=== PATIENT | male | born 1940 | race Caucasian/White ===

== ENCOUNTER 2019-11-03 12:15 | Emergency (ER) | payer OTHER, SELFPAY ==
[2019-11-03 12:16] VITALS: BMI 25.9
--- NOTE | 2019-11-03 12:20 | ED_ITS ---
Entered by Sonya Thorpe, acting as scribe for HPI - Fall General: Chief Complaint: Fall Stated Complaint: FALL Time Seen by Provider: 11/03/19 12:20 Source: patient and family Mode of arrival: EMS Limitations: altered mental status (chronic dementia) History of Present Illness: HPI Narrative: 79 yo male presents to ED following a fall this morning. The patient has chronic dementia so the history has been given by his spouse. The spouse stated the patient went outside sometime this morning and was outside for about 5 minutes when he fell. The patient complaints of knee, chest and back pain. He said he has centralized chest pain with palpable L sided chest pain. The spouse states the patient told her that he landed on his hip first when he fell (didn't specify which one). He told his spouse he was numb when he came in. The patient's PCP is [facility] MD complaint: fall Onset (ago): hour(s) (1) Fall from: standing (walking) Fall witnessed: no Place fall occurred: home Loss of consciousness: Unsure Prolonged down time: no Symptoms prior to fall: other (unknown) Context: other (unknown) Location of injury: back, pelvis (hip) and other (knee) Location of injury - extremities: Right: knee Severity: moderate Quality: throbbing Associated symptoms-after fall: Reports chest pain Review of Systems Card: Reports: chest pain PFSH ED PFSH: Statuses (acute, chronic, etc) shown below reflect problem list status as previously entered and may not be historically accurate Social History Smoking and tobacco status: current every day smoker Course Vital Signs: Vital signs: Vital Signs Temperature 97.8 F 11/03/19 12:27 Pulse Rate 56 L 11/03/19 12:27 Respiratory Rate 17 11/03/19 12:57 Blood Pressure 133/77 11/03/19 12:27 Pulse Oximetry 98 11/03/19 12:57 MDM - Fall MDM Narrative: Medical decision making narrative: Patient presents here with knee along with chest pain from a fall. Patient likely has contusions and x- rays here are normal. He had no neck pain at all. CT scan is normal. Patient did have possible thoracic fracture but is likely old. Patient is stable for discharge. He is to follow-up with primary care doctor in 3 to 5 days and return if worsening. Lab Data: Labs: Lab Results 11/03/19 11/03/19 11/03/19 Range/Units 12:46 12:46 12:46 WBC 12.8 H (4.0-10.0) 10^3/ uL RBC 4.35 (4.1-5.3) 10^6/u L Hgb 14.1 (11.7-16.6) g/dL Hct 43.6 (42.0-52.0) % MCV 100.2 H (80-94) fL MCH 32.4 (28.0-34.0) pg MCHC 32.3 (30.0-36.0) g/dL RDW 14.2 (12.1-15.1) % Plt Count 157 (130-400) 10^3/c mm MPV 12.2 H (7.4-10.4) fL Neut % (Auto) 81.1 % Lymph % (Auto) 9.8 % Stephen[place] % (Auto) 5.5 % Eos % (Auto) 2.3 % Baso % (Auto) 0.5 % Neut # (Auto) 10.4 H (1.8-7.7) 10^3/u L Lymph # (Auto) 1.3 (0.8-4.8) 10^3/u L Stephenson # (Auto) 0.7 (0.2-0.9) 10^3/u L Eos # (Auto) 0.3 (0.0-0.8) 10^3/u L Baso # (Auto) 0.1 (0.0-0.1) 10^3/u L Nucleated RBC % (a uto) 0 % Nucleated RBCs # 0.0 /100WBC Sodium 136 (136-145) mmol/L Potassium 4.3 (3.5-5.1) mmol/L Chloride 100 (98-107) mmol/L Carbon Dioxide 24 (22-29) mmol/L Anion Gap 16.3 (5-19) BUN 14 (8-23) mg/dL Creatinine 1.3 H (0.7-1.2) mg/dL Glucose 126 H (74-106) mg/dL Calcium 9.8 (8.5-10.5) mg/dL Total Bilirubin 0.5 (0.15-1.2) mg/dL AST 18 (0-40) U/L ALT 15 (0-41) U/L Alkaline Phosphata se 80 (40-130) IU/L Troponin T Baselin e 10 (0-15) ng/mL Total Protein 6.6 (6.6-8.7) g/dL Albumin 4.4 (3.5-5.2) g/dL Globulin 2.2 (1.3-4.6) g/dL Imaging Data^: CXR: Radiologist's impression: [place] [id number] XRay Report Signed Patient: Gene Vargas Unit #: [id number] : 1940 Age/Sex: 79 / M ADM Date: 11/03/19 Loc: ER Room/Bed: Attending Dr: Ordering Provider/Ordering MD: Ric Helton MD Date of Service: 11/03/19 Procedure(s): XR chest 1V portable [id number] Accession Number(s): [id number] Report Number: [id number] PROCEDURE INFORMATION: Exam: XR Chest, 1 View Exam date and time: 11/03/2019 1:39 PM Age: 79 years old Clinical indication: Injury or trauma; Fall; Initial encounter; Blunt trauma (contusions or hematomas); Additional info: Fall, patient confused TECHNIQUE: Imaging protocol: XR of the chest Views: 1 view. COMPARISON: CR Chest 1 [place] [id number] 05/18/2018 1:28 AM FINDINGS: Lungs: Unremarkable. No consolidation. Pleural space: Unremarkable. No pleural effusion. No pneumothorax. Heart/Mediastinum: Unremarkable. No cardiomegaly. Bones/joints: Unremarkable. XR/XR chest 1V portable [id number] IMPRESSION: No acute findings. Dictated By: Neto Smith Signed By: Neto Smith Signed Date/Time: 11/03/19 1403 DD/ Other Xray: Radiologist's impression: [address] [address] XRay Report Signed Patient: Gene Vargas Unit #: [id number] : 1940 Age/Sex: 79 / M ADM Date: 11/03/19 Loc: ER Room/Bed: Attending Dr: Ordering Provider/Ordering MD: Ric Helton MD Date of Service: 11/03/19 Procedure(s): XR lumbar spine 2-3V* 54869 Accession Number(s): [id number] Report Number: [id number] PROCEDURE INFORMATION: Exam: XR Lumbosacral Spine, 2 or 3 Views Exam date and time: 11/03/2019 1:37 PM Age: 79 years old Clinical indication: Injury or trauma; Fall; Initial encounter; Blunt trauma (contusions or hematomas); Additional info: Fall, patient confused TECHNIQUE: Imaging protocol: XR of the lumbosacral spine, 2 or 3 views. COMPARISON: No relevant prior studies available. FINDINGS: Vertebrae: Normal. No acute fracture. Normal alignment. Soft tissues: Normal. XR/XR lumbar spine 2-3V* [id number] IMPRESSION: Unremarkable radiograph. Dictated By: Neto Smith Signed By: Neto Smith Signed Date/Time: 11/03/19 1357 DD/ [address] [address] XRay Report Signed Patient: Gene Vargas Unit #: [id number] : 1940 Age/Sex: 79 / M ADM Date: 11/03/19 Loc: ER Room/Bed: Attending Dr: Ordering Provider/Ordering MD: Ric Helton MD Date of Service: 11/03/19 Procedure(s): XR pelvis 1-2V* 78555 Accession Number(s): [id number] Report Number: [id number] PROCEDURE INFORMATION: Exam: XR Pelvis Exam date and time: 11/03/2019 1:39 PM Age: 79 years old Clinical indication: Injury or trauma; Fall; Initial encounter; Blunt trauma (contusions or hematomas); Bilateral; Pelvic region; Additional info: Fall, patient confused TECHNIQUE: Imaging protocol: XR pelvis. Views: 1 or 2 view. COMPARISON: No relevant prior studies available. FINDINGS: Bones/joints: Unremarkable. No acute fracture. Soft tissues: Unremarkable. XR/XR pelvis 1-2V* [id number] IMPRESSION: No acute findings. Dictated By: Neto Smith Signed By: Nteo Smith Signed Date/Time: 11/03/19 1402 DD/ [place] [id number] XRay Report Signed Patient: Gene Vargas Unit #: [id number] : 1940 Age/Sex: 79 / M ADM Date: 11/03/19 Loc: ER Room/Bed: Attending Dr: Ordering Provider/Ordering MD: Ric Helton MD Date of Service: 11/03/19 Procedure(s): XR thoracic spine 3V* 57984 Accession Number(s): [id number] Report Number: [id number] PROCEDURE INFORMATION: Exam: XR Thoracic Spine, 3 Views Exam date and time: 11/03/2019 1:37 PM Age: 79 years old Clinical indication: Injury or trauma; Fall; Initial encounter; Blunt trauma (contusions or hematomas); Additional info: Fall, patient confused TECHNIQUE: Imaging protocol: XR of the thoracic spine, 3 views. COMPARISON: No relevant prior studies available. FINDINGS: Vertebrae: A T5 compression fracture is seen of indeterminate age. Generalized osteopenia is seen. Otherwise No acute fracture. Normal alignment. Soft tissues: Normal. XR/XR thoracic spine 3V* 71587 IMPRESSION: Generalized osteopenia. Compression fracture T5 vertebral body. Otherwise negative examination Dictated By: Neto Smith Signed By: Neto Smith Signed Date/Time: 11/03/19 1356 DD/ [address] [address] XRay Report Signed Patient: Gene Vargas Unit #: [id number] : 1940 Age/Sex: 79 / M ADM Date: 11/03/19 Loc: ER Room/Bed: Attending Dr: Ordering Provider/Ordering MD: Ric Helton MD Date of Service: 11/03/19 Procedure(s): XR knee LT 3V* 86369 Accession Number(s): [id number] Report Number: [id number] PROCEDURE INFORMATION: Exam: XR Left Knee Exam date and time: 11/03/2019 1:39 PM Age: 79 years old Clinical indication: Injury or trauma; Fall; Initial encounter; Blunt trauma; Knee; Left; Additional info: Fall, patient confused TECHNIQUE: Imaging protocol: XR Left knee. Views: 3 views. COMPARISON: No relevant prior studies available. FINDINGS: Bones/joints: Negative for acute bony abnormality. Soft tissues: Normal. XR/XR knee LT 3V* [id number] IMPRESSION: No acute findings. Dictated By: Neto Smith Signed By: Neto Smith Signed Date/Time: 11/03/19 1357 DD/ [place] [address] XRay Report Signed Patient: Gene Vargas Diya Unit #: [id number] : 1940 Age/Sex: 79 / M ADM Date: 11/03/19 Loc: ER Room/Bed: Attending Dr: Ordering Provider/Ordering MD: Ric Helton MD Date of Service: 11/03/19 Procedure(s): XR knee RT 3V* 12888 Accession Number(s): [id number] Report Number: [id number] PROCEDURE INFORMATION: Exam: XR Right Knee Exam date and time: 11/03/2019 1:39 PM Age: 79 years old Clinical indication: Injury or trauma; Fall; Initial encounter; Blunt trauma; Knee; Right; Additional info: Fall, patient confused TECHNIQUE: Imaging protocol: XR Right knee. Views: 3 views. COMPARISON: No relevant prior studies available. FINDINGS: Bones/joints: Negative for acute bony abnormality Soft tissues: Normal. XR/XR knee RT 3V* 69080 IMPRESSION: No acute findings. Dictated By: Neto Smith Signed By: Neto Smith Signed Date/Time: 11/03/19 135 DD/ CT Head: Radiologist's impression: [place] [address] CT Scan Report Signed Patient: Gene Vargas Diya Unit #: [id number] : 1940 Age/Sex: 79 / M ADM Date: 11/03/19 Loc: ER Room/Bed: Attending Dr: Ordering Provider/Ordering MD: Ric Helton MD Date of Service: 11/03/19 Procedure(s): CT head wo con* 48044 Accession Number(s): [id number] Report Number: [id number] WS: [id number] CT HEAD NONCONTRAST HISTORY: fall TECHNIQUE: Contiguous axial imaging performed through the brain in 2.5 mm imaging. Bone and soft tissue windows. Sagittal and coronal reformats reviewed. All CT scans at [facility] use at least one of these dose optimization techniques: automated exposure control; mA and/or kV adjustment per patient size (includes targeted exams where dose is matched to clinical indication); or iterative reconstruction. DLP: 580.56 mGy.cm COMPARISON: 08/21/[address] head 11/13/2015 No acute intracranial hemorrhage, midline shift or mass effect. Mild atrophy is symmetric bilaterally. There is also mild cerebellar atrophy. Extensive chronic microvascular ischemic disease. Ventricles: Ventricles and extra-axial spaces are mildly prominent on the basis of atrophy. Mild intracranial carotid artery atherosclerosis. Paranasal sinuses: As visualized are clear. Mastoid air cells: Well pneumatized. Calvarium and scalp: Skull is intact with no soft tissue edema or swelling. CT/CT head wo con* 03346 IMPRESSION: 1. No acute intracranial hemorrhage or edema. 2. Mild atrophy with moderate chronic microvascular ischemic disease. No progression or change since 11/13/2015. Dictated By: Imani Cesar DO Signed By: Imani Cesar DO Signed Date/Time: 11/03/19 1307 DD/ EKG Data^: EKG 1: Attestation: I personally reviewed and interpreted this EKG as follows: EKG interpretation date: 11/03/19 EKG interpretation time: 12:36 Interpretation: sinus roxanna hr [address] or t wave abnormalities qrs 97 Discharge Plan Discharge Patient Disposition: Home, Self-Care Clinical Impression: Fall Qualifiers: Encounter type: initial encounter Qualified Code(s): W19.XXXA - Unspecified fall, initial encounter Contusion of knee Qualifiers: Encounter type: initial encounter Laterality: unspecified laterality Qualified Code(s): S80.00XA - Contusion of unspecified knee, initial encounter Closed compression fracture of thoracic vertebra Qualifiers: Encounter type: initial encounter Qualified Code(s): S22.000A - Wedge compression fracture of unspecified thoracic vertebra, initial encounter for closed fracture Condition: Stable Prescriptions: No Action donepezil 5 mg Tablet 5 mg PO DAILY RF: 0 aspirin [Aspir-81] 81 mg Tablet,Delayed Release (Dr/Ec) 81 mg PO DAILY RF: 0 pantoprazole [Protonix] 40 mg Tablet,Delayed Release (Dr/Ec) 40 mg PO DAILY RF: 0 cyanocobalamin (vitamin B-12) 1,000 mcg/mL Solution 1,000 mcg IM Q30D RF: 0 Nitrostat 0.4 mg Tablet, Sublingual 0.4 mg SUBLINGUAL Q5M PRN (Reason: Chest Pain) RF: 0 rosuvastatin 20 mg Tablet 10 mg PO QPM RF: 0 memantine 10 mg Tablet 10 mg PO BID RF: 0 Vitamin B-12 2,500 mcg Tablet, Sublingual 2,500 mcg SUBLINGUAL DAILY RF: 0 Discharge Orders: Discharge Order (Routine); Ordered 11/03/19 Ordered By: Ric Helton Referrals: Aldo Traylor [Primary Care Provider] - 4-7 days Leonel Molina MD [Physician] - 4-7 days Discharge Diet: Advance as tolerated Discharge Activity: Resume usual activity Patient Instructions: Thoracolumbar Fracture (ED), Fall Prevention (ED) Coding Level of Care Code ED Manager Contact for [facility] Fwd The documentation recorded by the Maurilio treviño Valerie R accurately reflects the service I personally performed and the decisions made by Sunitha velazquez Korby, MD Nov 03, 2019 12:15
--- NOTE | 2019-11-03 12:23 | XRR_ITS ---
PROCEDURE INFORMATION: Exam: XR Lumbosacral Spine, 2 or 3 Views Exam date and time: 11/03/2019 1:37 PM Age: 79 years old Clinical indication: Injury or trauma; Fall; Initial encounter; Blunt trauma (contusions or hematomas); Additional info: Fall, patient confused TECHNIQUE: Imaging protocol: XR of the lumbosacral spine, 2 or 3 views. COMPARISON: No relevant prior studies available. FINDINGS: Vertebrae: Normal. No acute fracture. Normal alignment. Soft tissues: Normal. XR/XR lumbar spine 2-3V* 60829 IMPRESSION: Unremarkable radiograph.
--- NOTE | 2019-11-03 12:23 | XRR_ITS ---
PROCEDURE INFORMATION: Exam: XR Left Knee Exam date and time: 11/03/2019 1:39 PM Age: 79 years old Clinical indication: Injury or trauma; Fall; Initial encounter; Blunt trauma; Knee; Left; Additional info: Fall, patient confused TECHNIQUE: Imaging protocol: XR Left knee. Views: 3 views. COMPARISON: No relevant prior studies available. FINDINGS: Bones/joints: Negative for acute bony abnormality. Soft tissues: Normal. XR/XR knee LT 3V* 93331 IMPRESSION: No acute findings.
--- NOTE | 2019-11-03 12:23 | XRR_ITS ---
PROCEDURE INFORMATION: Exam: XR Thoracic Spine, 3 Views Exam date and time: 11/03/2019 1:37 PM Age: 79 years old Clinical indication: Injury or trauma; Fall; Initial encounter; Blunt trauma (contusions or hematomas); Additional info: Fall, patient confused TECHNIQUE: Imaging protocol: XR of the thoracic spine, 3 views. COMPARISON: No relevant prior studies available. FINDINGS: Vertebrae: A T5 compression fracture is seen of indeterminate age. Generalized osteopenia is seen. Otherwise No acute fracture. Normal alignment. Soft tissues: Normal. XR/XR thoracic spine 3V* 06306 IMPRESSION: Generalized osteopenia. Compression fracture T5 vertebral body. Otherwise negative examination
--- NOTE | 2019-11-03 12:23 | XRR_ITS ---
PROCEDURE INFORMATION: Exam: XR Right Knee Exam date and time: 11/03/2019 1:39 PM Age: 79 years old Clinical indication: Injury or trauma; Fall; Initial encounter; Blunt trauma; Knee; Right; Additional info: Fall, patient confused TECHNIQUE: Imaging protocol: XR Right knee. Views: 3 views. COMPARISON: No relevant prior studies available. FINDINGS: Bones/joints: Negative for acute bony abnormality Soft tissues: Normal. XR/XR knee RT 3V* 86535 IMPRESSION: No acute findings.
--- NOTE | 2019-11-03 12:23 | XRR_ITS ---
PROCEDURE INFORMATION: Exam: XR Pelvis Exam date and time: 11/03/2019 1:39 PM Age: 79 years old Clinical indication: Injury or trauma; Fall; Initial encounter; Blunt trauma (contusions or hematomas); Bilateral; Pelvic region; Additional info: Fall, patient confused TECHNIQUE: Imaging protocol: XR pelvis. Views: 1 or 2 view. COMPARISON: No relevant prior studies available. FINDINGS: Bones/joints: Unremarkable. No acute fracture. Soft tissues: Unremarkable. XR/XR pelvis 1-2V* [id number] IMPRESSION: No acute findings.
--- NOTE | 2019-11-03 12:23 | XRR_ITS ---
PROCEDURE INFORMATION: Exam: XR Chest, 1 View Exam date and time: 11/03/2019 1:39 PM Age: 79 years old Clinical indication: Injury or trauma; Fall; Initial encounter; Blunt trauma (contusions or hematomas); Additional info: Fall, patient confused TECHNIQUE: Imaging protocol: XR of the chest Views: 1 view. COMPARISON: CR Chest 1 [place] [id number] 05/18/2018 1:28 AM FINDINGS: Lungs: Unremarkable. No consolidation. Pleural space: Unremarkable. No pleural effusion. No pneumothorax. Heart/Mediastinum: Unremarkable. No cardiomegaly. Bones/joints: Unremarkable. XR/XR chest 1V portable [id number] IMPRESSION: No acute findings.
--- NOTE | 2019-11-03 12:23 | CT_ITS ---
WS: [id number] CT HEAD NONCONTRAST HISTORY: fall TECHNIQUE: Contiguous axial imaging performed through the brain in 2.5 mm imaging. Bone and soft tiss ue windows. Sagittal and coronal reformats reviewed. All CT scans at [facility] use at ast one of these dose optimization techniques: automated exposure control; mA and/or kV adjustment pe r patient size (includes targeted exams where dose is matched to clinical indication); or iterative r econstruction. DLP: 580.56 mGy.cm COMPARISON: 08/21/[address] head 11/13/2015 No acute intracranial hemorrhage, midline shift or mass effect. Mild atrophy is symmetric bilaterally. There is also mild cerebellar atrophy. Extensive chronic micro vascular ischemic disease. Ventricles: Ventricles and extra-axial spaces are mildly prominent on the basis of atrophy. Mild intracranial carotid artery atherosclerosis. Paranasal sinuses: As visualized are clear. Mastoid air cells: Well pneumatized. Calvarium and scalp: Skull is intact with no soft tissue edema or swelling. CT/CT head wo con* 23845 IMPRESSION: 1. No acute intracranial hemorrhage or edema. 2. Mild atrophy with moderate chronic microvascular ischemic disease. No progr ession or change since 11/13/2015.
[2019-11-03 12:27] VITALS: BP 133/77; PULSE 56; RESP 20; TEMP 36.6; O2SAT 98
[2019-11-03 12:55] LABS: Basophils # 0.1 10^3/uL (0.0-0.1); Basophils % 0.5 %; Eosinophils # 0.3 10^3/uL (0.0-0.8); Eosinophils % 2.3 %; Hematocrit 43.6 % (42.0-52.0); Hemoglobin 14.1 g/dL (11.7-16.6); Lymphocytes # 1.3 10^3/uL (0.8-4.8); Lymphocytes % 9.8 %; Mean Corpuscular HGB Conc 32.3 g/dL (30.0-36.0); Mean Corpuscular Hemoglobin 32.4 pg (28.0-34.0); Mean Corpuscular Volume 100.2 fL (80-94); Mean Platelet Volume 12.2 fL (7.4-10.4); Monocytes # 0.7 10^3/uL (0.2-0.9); Monocytes % 5.5 %; Neutrophils # 10.4 10^3/uL (1.8-7.7); Neutrophils % 81.1 %; Nucleated Red Blood Cells % 0 %; Platelet Count 157 10^3/cmm (130-400); Red Blood Count 4.35 10^6/uL (4.1-5.3); Red Cell Distribution Width 14.2 % (12.1-15.1); White Blood Count 12.8 10^3/uL (4.0-10.0)
[2019-11-03 12:57] VITALS: RESP 17; O2SAT 98
[2019-11-03] MEDS: morphine 4 mg/mL SDV 1 mL IVP (12:57)
[2019-11-03 13:19] LABS: Alanine Aminotransferase 15 U/L (0-41); Albumin Level 4.4 g/dL (3.5-5.2); Alkaline Phosphatase 80 IU/L (40-130); Anion Gap 16.3 (5-19); Aspartate Amino Transferase 18 U/L (0-40); Blood Urea Nitrogen 14 mg/dL (8-23); Calcium 9.8 mg/dL (8.5-10.5); Carbon Dioxide 24 mmol/L (22-29); Chloride 100 mmol/L (98-107); Globulin 2.2 g/dL (1.3-4.6); Glucose 126 mg/dL (74-106); Potassium 4.3 mmol/L (3.5-5.1); Sodium 136 mmol/L (136-145); Total Bilirubin 0.5 mg/dL (0.15-1.2); Total Protein 6.6 g/dL (6.6-8.7); Troponin(5th) Baseline 10 ng/mL (0-15)
--- NOTE | 2019-11-03 14:25 | ECG_ITS ---
Measurements Intervals [place] Rate: 61 P: 52 MS: 150 QRS: 52 QRSD: 98 T: 64 QT: 424 QTc: 429 SINUS RHYTHM INTERPRETATION BASED ON A DEFAULT AGE OF 40 YEARS Compared to ECG 05/18/2018 03:20:21 Sinus bradycardia no longer present Electronically Signed On 11-03-2019 15:39:45 ASSISTANCE SPECIALIST by Leoncio Verdin M.D. [email or web address]
[2019-11-03] MEDS: HYDROcodone-acetaminophen 5-325 mg Tablet 1 TAB PO (14:46)
[2019-11-03 15:12] VITALS: BP 115/73; PULSE 79; RESP 18; O2SAT 96
--- NOTE | 2019-11-03 18:25 | ECG_ITS ---
Measurements Intervals [place] Rate: 50 P: 54 CT: 159 QRS: 54 QRSD: 97 T: 67 QT: 428 QTc: 394 SINUS BRADYCARDIA Compared to ECG 05/18/2018 03:20:21 No significant changes Electronically Signed On 11-03-2019 15:38:14 INSTALLATION ENGINEER by Leoncio Verdin M.D. [email or web address]
--- NOTE | 2019-11-06 10:09 | DCPLANNER ---
Addendum entered by Melissa Alas 11/06/19 10:23: [facility], pillowcase folder [facility], and let her know that patient was seen in the ER and that patient will need follow up with Dr. Molina. computer programming manager faxed patients records to January. Original Note: computer programming manager had message to schedule a follow up appointment for patient with Dr. Molina. computer programming manager called [facility], spoke with Lolly, gave clinic patients information. computer programming manager was told that patients information would be printed and given to Jt for review. Clinic will call patient with appointment information. computer programming manager will call for appointment information.
--- NOTE | 2019-11-08 14:06 | DCPLANNER ---
Patient has an appointment scheduled for Thursday, December 12, 2019 at 1:00 with Jeniffer Holland. Clinic will call patient with appointment information. signal manager called [facility], to inform her of the scheduled appointment.
--- NOTE | 2019-12-19 16:04 | DCPLANNER ---
Appointment scheduled for 12.11.19 was rescheduled.
== END 2019-11-03 15:14 | disposition home or self-care (01) ==
PROVIDERS: Emergency Provider Emergency Medicine; Family Provider Internal Medicine; PCP Internal Medicine
DX: S22.000A Wedge compression fracture of unspecified thoracic vertebra, initial encounter for closed fracture (principal); S80.00XA Contusion of unspecified knee, initial encounter; Z79.82 Long term (current) use of aspirin; F17.210 Nicotine dependence, cigarettes, uncomplicated; W19.XXXA Unspecified fall, initial encounter; Y92.009 Unspecified place in unspecified non-institutional (private) residence as the place of occurrence of the external cause
CPT/HCPCS: 36415; 70450; 71045; 72072; 72100; 72170; 73562; 80053; 84484; 85025; 93005; 96374; 99281; J2270